=== PATIENT | male | born 1995 | race African-American/Black ===

== ENCOUNTER 2016-11-10 18:25 | Emergency (ER) | payer OTHER ==
[~2016-11-10] VITALS: Ht 167.6 cm; Wt 86.4 kg
[~2016-11-10 18:25] MED LIST: TAMIFLU 75MG75 MG PO; ZYRTEC 10MG10 MG PO
[2016-11-10 18:31] VITALS: BP 134/86; TEMP 98.4
[2016-11-10] MEDS ORDERED: CLARITIN 1010 MG/TAB PO (18:35)
[2016-11-10 19:39] VITALS: PULSE 100
== END 2016-11-10 19:39 | disposition home or self-care (01) ==
LOC: COL.ER 18:25
DX: S29.011A Strain of muscle and tendon of front wall of thorax, initial encounter (principal); J45.909 Unspecified asthma, uncomplicated; X50.0XXA Overexertion from strenuous movement or load, initial encounter; Y92.39 Other specified sports and athletic area as the place of occurrence of the external cause

== ENCOUNTER → 2018-02-09 | Outpatient (CLI) | payer OTHER ==
[~2018-02-09] MED LIST changes: +CLARITIN 1010 MG/TAB PO
== END ==
LOC: COL.RAD 12:43
DX: N17.9 Acute kidney failure, unspecified (principal); N28.9 Disorder of kidney and ureter, unspecified